=== PATIENT | male | born 1965 | race Hispanic/Latino ===

== ENCOUNTER 2019-08-18 10:36 | Outpatient (CLI) | payer BC, OTHER ==
--- NOTE | 2019-08-18 11:29 | RAD ---
PA AND LATERAL CHEST: HISTORY: Abnormal x-rays at the chiropractor's office. FINDINGS: The heart size is normal. The lungs are well expanded without focal areas of consolidation, mass, pne umothoraces or pleural effusions. 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 IMPRESSION: No radiographic evidence of acute cardiopulmonary process. POS: [facility]
== END 2019-08-18 10:37 | disposition home or self-care (01) ==
LOC: NAV RAD 10:36
PROVIDERS: ATTEND Family Medicine
DX: R91.8 Other nonspecific abnormal finding of lung field (principal)
CPT/HCPCS: 71046